=== PATIENT | female | born 1950 | race Caucasian/White ===

== ENCOUNTER 2017-03-12 00:55 | Emergency (ER) | payer OTHER ==
[~2017-03-12] VITALS: Ht 147.3 cm; Wt 68.9 kg
--- NOTE | ~2017-03-12 | CT71 ---
[facility] A Service of [facility] RADIOLOGY TEXT RESULTS PATIENT: KUSHAL IVY LOCATION: [place] : 50 UNIT #: [id number] AGE: [address]: Bao Cervantes MD SEX: F ORDER DR: [id number] [facility] [address] [place], [place] [address] [id number] MR#: [id number] #: [id number] NAME: KUSHAL IVY : 1950 SEX: F STUDY DATE/TIME: 03/12/2017 3:13 UNIT: [facility] ROOM: STUDY DESCRIPTION: CT Head Wo Contrast Attending Physician: Bao Cervantes M.D. Ordering Physician: Bao Cervantes M.D. Primary Care Physician: Meggan Delgado M.D. MEDICAL IMAGING REPORT This report is preliminary unless electronic signature is present EXAM CT brain without contrast HISTORY Fell and hit head today. Headache and dizzy. TECHNIQUE This CT exam was performed with one or more of the following radiation dose reduction techniques: Automatic exposure control, adjustment of mA and/or kV according to patient size, and iterative reconstruction. FINDINGS CT brain without contrast demonstrates no intracranial hemorrhage, mass, or edema. No midline shift or ventricular dilatation or extraaxial fluid collection. Minimal chronic ischemic changes in the deep white matter adjacent to the frontal horns of the lateral ventricles. Small soft tissue contusion along the lateral right orbital rim. IMPRESSION 1. No acute intracranial findings. 2. Soft tissue contusion along the lateral right orbital rim. Dictated by... Darrell Bales M.D. THIS IS AN ELECTRONICALLY VERIFIED REPORT Darrell Bales M.D. at 03/12/2017 3:58 PM DFL/hanane TD: 03/12/2017 07:55 JOB #: [id number] [facility] A Service of [facility] RADIOLOGY TEXT RESULTS PATIENT: KUSHAL IVY LOCATION: [place] : 50 UNIT #: [id number] AGE: [address]: Bao Cervantes MD SEX: F ORDER DR: MEDICAL IMAGING REPORT Page 1 of 1 COPY
[~2017-03-12 00:55] MED LIST: ACETAMINOPHEN PO; ACETAMINOPHEN325 MG PO; ACETAMINOPHEN650 M4 PO; AMITRYPTYLINE; BC POWDER; CARAFATE PO; CARAFATE1 G PO; CELEXA PO; EFFEXOR PO; FIORICET W/CODE1 CAP; IBUPROFEN; IBUPROFEN PO; IBUPROFEN800 MG PO; LAXATIVE OF CHOICE PO; NAPROXEN PO; NORCO 7.5-3251 EACH PO; OMEPRAZOLE20 M2 PO; OTC COUGH MED; PRILOSEC20 M1 PO; PRILOSEC40 MG PO; PROAIR RESPICL90 MCG INH; PROTONIX PO; REQUIP1 MG; ROXICODONE5 MG PO; SYMBICORT INH; TYLOX 5/500 CAP1 CAP; ULTRAM; ULTRAM PO; VITAMIN; VOLTAREN75 MG PO; ZITHROMAX; ZOLOFT50 MG PO; [UNRECOGNIZED DRUG - OTHER]
== END 2017-03-12 04:00 | disposition home or self-care (01) ==
LOC: CED 00:55
DX: S09.90XA Unspecified injury of head, initial encounter (principal); S00.83XA Contusion of other part of head, initial encounter; W06.XXXA Fall from bed, initial encounter; Y92.009 Unspecified place in unspecified non-institutional (private) residence as the place of occurrence of the external cause
CPT/HCPCS: 70450; 99284